=== PATIENT | female | born 1995 | race Caucasian/White ===

== ENCOUNTER 2022-01-29 08:43 | Outpatient (CLI) | payer BC, SELFPAY ==
[2022-01-29 09:17] LABS: Hemoglobin* 12.8 gm/dL (12.0-16.0)
[2022-01-29 14:23] LABS: Cholesterol* 188 mg/dL (90-199); Glucose* 83 mg/dL (60-115); HDL Cholesterol* 48 mg/dL (>=50); LDL Cholesterol Calculated 126 mg/dL (<100); Triglycerides* 71 mg/dL (40-149)
== END 2022-01-29 08:44 | disposition home or self-care (01) ==
PROVIDERS: PCP Physician Assistant Medical; Visit Provider Physician Assistant Medical
DX: Z01.419 Encounter for gynecological examination (general) (routine) without abnormal findings (principal); Z13.6 Encounter for screening for cardiovascular disorders; Z13.1 Encounter for screening for diabetes mellitus; F41.9 Anxiety disorder, unspecified; F32.A Depression, unspecified
CPT/HCPCS: 80061; 82947; 85018

== ENCOUNTER 2023-03-06 16:20 | Outpatient (CLI) | payer BC, SELFPAY ==
[2023-03-06 23:10] LABS: Chlamydia DNA Amplified* NOT DETECTED (No Detected); GC DNA Amplified* NOT DETECTED (No Detected)
== END 2023-03-06 16:21 | disposition home or self-care (01) ==
LOC: LKVREF 16:20
PROVIDERS: PCP Physician Assistant Medical; Visit Provider Physician Assistant Medical
DX: Z00.00 Encounter for general adult medical examination without abnormal findings (principal); L65.9 Nonscarring hair loss, unspecified; Z13.0 Encounter for screening for diseases of the blood and blood-forming organs and certain disorders involving the immune mechanism; Z13.6 Encounter for screening for cardiovascular disorders; Z13.1 Encounter for screening for diabetes mellitus
CPT/HCPCS: 87491; 87591

== ENCOUNTER 2023-03-12 08:19 | Outpatient (CLI) | payer BC, SELFPAY | END 2023-03-12 08:20 | disposition home or self-care (01) | LOC: NFLDREF 03-13 06:09 | PROVIDERS: PCP Physician Assistant Medical; Referring Provider Physician Assistant Medical; Visit Provider Physician Assistant Medical | DX: L65.9 Nonscarring hair loss, unspecified (principal); Z13.220 Encounter for screening for lipoid disorders; Z13.0 Encounter for screening for diseases of the blood and blood-forming organs and certain disorders involving the immune mechanism; Z13.1 Encounter for screening for diabetes mellitus; Z13.29 Encounter for screening for other suspected endocrine disorder | CPT/HCPCS: 80061; 82670; 82728; 82947; 83540; 84403; 84443 ==

== ENCOUNTER 2024-03-12 12:09 | Outpatient (CLI) | payer BC, SELFPAY ==
[2024-03-13 02:33] LABS: Chlamydia DNA Amplified* NOT DETECTED (No Detected); GC DNA Amplified* NOT DETECTED (No Detected)
[2024-03-17 15:38] LABS: HPV Source Cervix; HPV, High Risk by TMA Not Detected
== END 2024-03-12 12:10 | disposition home or self-care (01) ==
PROVIDERS: PCP Physician Assistant Medical; Visit Provider Physician Assistant Medical
DX: L65.9 Nonscarring hair loss, unspecified (principal); Z13.6 Encounter for screening for cardiovascular disorders; Z13.1 Encounter for screening for diabetes mellitus; Z11.3 Encounter for screening for infections with a predominantly sexual mode of transmission; Z13.29 Encounter for screening for other suspected endocrine disorder; Z11.59 Encounter for screening for other viral diseases
CPT/HCPCS: 80061; 82306; 82947; 84443; 86592; 86703; 86803; 87491; 87591; 87624; 87625; 88141; 88142

== ENCOUNTER 2024-12-24 14:47 | Outpatient (CLI) | payer BC, SELFPAY ==
[2024-12-24 23:24] LABS: Chlamydia DNA Amplified* NOT DETECTED (No Detected); GC DNA Amplified* NOT DETECTED (No Detected)
[2024-12-25 05:22] LABS: Bacterial Vaginosis* POSITIVE (Negative); Candida glab/krus NOT DETECTED (No Detected)
== END 2024-12-24 14:48 | disposition home or self-care (01) ==
PROVIDERS: PCP Physician Assistant Medical; Visit Provider Registered Nurse
DX: Z30.9 Encounter for contraceptive management, unspecified (principal)
CPT/HCPCS: 81513; 87481; 87491; 87591; 87661

== ENCOUNTER 2025-01-26 14:26 | Outpatient (CLI) | payer BC, SELFPAY ==
--- NOTE | 2025-01-26 14:45 | CRLHL7_ITS ---
For Patients: As a result of the Century Cures Act, medical imaging exams and procedure reports are released immediately into your electronic medical record. You may view this report before your referring provider. If you have questions, please contact your health care provider. CLINICAL HISTORY: Abdominal distension, bloating/pain, hx of fibroid, IUD placement COMPARISON: None. TECHNIQUE: 2D gunter-scale ultrasound. In addition, color Doppler and spectral Doppler analysis was performed of the pelvis using a transabdominal and transvaginal approach. Transvaginal imaging performed to better visualize the endometrial stripe and ovaries. FINDINGS: IUD is present within the endometrium in good position. Endometrial thickness 4.6 millimeters. Post myomectomy changes are present. Uterus measures 7.9 x 3.6 x 4.2 cm. The right ovary measures 3.6 x 1.8 x 2.1 cm in size and the left ovary measures 3.3 x 2.3 x 2.7 cm. The ovaries demonstrate normal arterial and venous blood flow on color Doppler and spectral Doppler analysis. There are no suspicious fluid collections within the cul-de-sac. IMPRESSION: Normal position of an IUD within the endometrial canal. Normal ovaries. No torsion or adnexal mass. No excess pelvic free fluid. Dictated by Yvon Price MD @ 01/26/2025 4:40:32 PM (Electronically Signed)
== END 2025-01-26 14:27 | disposition home or self-care (01) ==
PROVIDERS: PCP Physician Assistant Medical; Visit Provider Registered Nurse
DX: R14.0 Abdominal distension (gaseous) (principal); R10.20 Pelvic and perineal pain unspecified side
CPT/HCPCS: 76830; 76856; 93976

== ENCOUNTER 2025-02-03 12:25 | Outpatient (CLI) | payer BC, SELFPAY | END 2025-02-03 12:26 | disposition home or self-care (01) | PROVIDERS: PCP Physician Assistant Medical; Visit Provider Physician Assistant Medical | DX: R10.9 Unspecified abdominal pain (principal); R14.0 Abdominal distension (gaseous); K62.9 Disease of anus and rectum, unspecified | CPT/HCPCS: 80053; 82784; 83690; 84443; 86140; 86231; 86258; 86364 ==